=== PATIENT | female | born 2000 | race Two or more races ===

== ENCOUNTER 2024-01-12 19:28 | Emergency (ER) | payer OTHER ==
[~2024-01-12] VITALS: Ht 170.2 cm; Wt 86.0 kg
[2024-01-12] MEDS ORDERED: IBUPROFEN 800 MG TAB PO ONE (20:00)
[2024-01-12] MEDS ORDERED: KETOROLAC TROMETH 60MG/2ML VIAL IM ONE ×2 (21:45)
[2024-01-12] MEDS ORDERED: IBUP-1456 PO (21:46)
[2024-01-12 21:50] VITALS: BP 130/61; PULSE 67; RESP 18; TEMP 98.3; O2SAT 98
[2024-01-12] MEDS ORDERED: HYDR-4902 PO (22:05)
[2024-01-12] MEDS: HYDROcodone-ACET 5/325MG TAB PO ONE (22:17)
[2024-01-12] MEDS: ONDANSETRON ODT 4 MG TAB PO ONE (22:17)
== END 2024-01-12 22:29 | disposition home or self-care (01) ==
LOC: ER 19:28
DX: S93.401A Sprain of unspecified ligament of right ankle, initial encounter (principal); Z79.899 Other long term (current) drug therapy; Z98.890 Other specified postprocedural states; X58.XXXA Exposure to other specified factors, initial encounter; Y93.89 Activity, other specified; Y92.89 Other specified places as the place of occurrence of the external cause; Y99.8 Other external cause status
CPT/HCPCS: 73610; 99283; Q0162; J1885